=== PATIENT | female | born 1985 | race Two or more races ===

== ENCOUNTER 2022-05-03 10:41 | Outpatient (REF) | payer BC, SELFPAY ==
--- NOTE | ~2022-05-03 | XR_ITS ---
EXAMINATION: XR chest 2V CLINICAL INFORMATION: Reason for Exam POST COVID CONDITION COMPARISON: None TECHNIQUE: 2 views of the chest FINDINGS: Hazy right midlung airspace opacity may reflect sequelae of prior infection however recommend continued follow-up radiograph to ensure resolution. No pneumothorax or pleural effusion. Normal cardiomediastinal silhouette. XR/XR chest 2V IMPRESSION: Hazy right midlung airspace opacity may reflect sequelae of prior infection, given provided history of Covid however recommend continued follow-up radiographs to ensure resolution
== END 2022-05-03 10:42 | disposition home or self-care (01) ==
LOC: HO.XRAY 10:41
PROVIDERS: PCP Internal Medicine; Visit Provider Internal Medicine
DX: U09.9 Post COVID-19 condition, unspecified (principal)
CPT/HCPCS: 71046